=== PATIENT | male | born 1970 | race American Indian/Alaskan Native ===

== ENCOUNTER 2016-12-27 09:19 | Emergency (ER) | payer OTHER ==
[2016-12-27 09:33] VITALS: BP 118/83
[2016-12-27] MEDS ORDERED: TORADOL IM ONE (11:44)
[2016-12-27] MEDS ORDERED: FLEXERIL PO ONE (11:44)
[2016-12-27] MEDS ORDERED: NORCO 7.5/325 PO ONE (11:44)
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
== END 2016-12-27 13:26 | disposition home or self-care (01) ==
LOC: ED 09:19
DX: M54.5 Low back pain (principal); M54.6 Pain in thoracic spine; Z72.0 Tobacco use; V87.7XXA Person injured in collision between other specified motor vehicles (traffic), initial encounter; Y93.89 Activity, other specified; Y99.9 Unspecified external cause status; Y92.410 Unspecified street and highway as the place of occurrence of the external cause
CPT/HCPCS: 72072; 72100; 96372; 99283; J1885

== ENCOUNTER 2020-04-24 01:37 | Emergency (ER) | payer SELFPAY ==
[2020-04-24] MEDS ORDERED: HYDROcodone/ACETAMINOPHEN 5-325 MG TAB PO STA (14:30)
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
[2020-04-24 16:38] VITALS: BP 115/70
== END 2020-04-24 16:36 | disposition home or self-care (01) ==
LOC: ED 01:37
DX: M54.9 Dorsalgia, unspecified (principal); Z79.899 Other long term (current) drug therapy; V49.49XA Driver injured in collision with other motor vehicles in traffic accident, initial encounter; Y93.89 Activity, other specified; Y92.488 Other paved roadways as the place of occurrence of the external cause; Y99.8 Other external cause status
CPT/HCPCS: 72072; 99283